=== PATIENT | female | born 1965 | race Caucasian/White ===

== ENCOUNTER 2023-04-16 19:05 | Emergency (ER) | payer BC, SELFPAY ==
[2023-04-16 19:09] VITALS: BP 148/87; PULSE 90; RESP 18; TEMP 36.6; O2SAT 98; BMI 20.8
--- NOTE | 2023-04-16 19:27 | ED_ITS ---
HPI - General Adult General Time Seen by Provider: 19:27 Date Seen: 04/16/23 Chief complaint: Abdominal Pain Stated complaint: L side pain, previous hematoma Time Seen by Provider: 04/16/23 19:17 Source: patient Mode of arrival: ambulatory Limitations: no limitations History of Present Illness HPI narrative: Patient is a 57-year-old female without her to the medical problems presenting to emergency department for concern for hematoma to left side of abdomen. She states will 3 weeks ago she had liposuction performed. She then developed a hematoma in the area on the left lateral aspect of her abdomen and had the hematoma drained this past Tuesday and then again on . She thinks they got about 150 mL all total. She then notes above the hematoma there is a new dense aspect that was painful to palpation that she did not notice before. She states she is unsure if it was there previously or not because of how large hematoma was. She states they did not get all the hematoma of the head. She states she has been otherwise feeling well. Has been taking Vicodin as directed. As be eating without issue. Denies nausea, vomiting, abdominal pain, headache, vision changes, weakness, numbness, diarrhea, constipation, chest pain, shortness of breath Related Data Home Medications Medication Instructions Recorded Confirmed levothyroxine 100 mcg capsule 100 mcg PO DAILY 04/16/23 04/16/23 Allergies Allergy/AdvReac Type Severity Reaction Status Date / Time methocarbamol [From Robaxin] Allergy Verified 04/17/23 05:11 neproxin Allergy Intermediate Uncoded 04/17/23 05:11 Review of Systems Status of ROS: Reports: 10 or more systems reviewed and unremarkable except as noted in History and below [facility] Social History Smoking Status: Never smoker Do you use any of these nicotine containing products: None Second hand tobacco smoke exposure: No How often do you have a drink containing alcohol: 2-4 times a month AUDIT-C Alcohol total score: 2 Non-prescribed substance use: denies use Exam Narrative: Exam Narrative: Const: Well-nourished, Well-developed, in no distress Eyes: PERRL, no conjunctival injection, and symmetrical lids ENMT: Atraumatic external nose and ears. Moist mucous membranes. Neck: Symmetric, trachea midline, No thyromegaly. CVS: RRR, No murmurs or gallops. Peripheral pulses 2+ and equal in all extremities RESP: Unlabored respiratory effort. Clear to auscultation bilaterally. GI: Mild tenderness in the left lateral aspect of the lower abdomen and is a firm nodule. Nondistended, No rebound or guarding. MSK:Extremities w/o deformity, Normal Active ROM Skin: Warm, Dry. Mild bruising noted to the left lower aspect below the previously stated nodule Neuro: Normal Muscle tone, No focal neurological deficits. Psych: Awake, Alert, & Oriented x3. Appropriate mood and affect. Const: Vital Signs, click to edit/add: Vital Signs - 24 hr 04/16/23 19:09 04/16/23 21:14 Temperature 98 F Pulse Rate [Pulse Oximeter] 90 70 Respiratory Rate 18 18 Blood Pressure [Le ft Upper Arm] 148/87 H 126/76 Pulse Oximetry 98 99 Oxygen Delivery Me thod Room Air Room Air Course Vital Signs Vital signs: Initial Vital Signs Temperature 98 F 04/16/23 19:09 Temperature Source Temporal Artery Scan 04/16/23 19:09 Pulse Rate 90 04/16/23 19:09 Respiratory Rate 18 04/16/23 19:09 Blood Pressure 148/87 H 04/16/23 19:09 Blood Pressure Mean 107 H 04/16/23 19:09 Blood Pressure Position Sitting 04/16/23 19:09 Pulse Oximetry 98 04/16/23 19:09 Oxygen Delivery Method Room Air 04/16/23 19:09 Vital Signs Temperature 98 F 04/16/23 19:09 Pulse Rate 90 04/16/23 19:09 Respiratory Rate 18 04/16/23 19:09 Blood Pressure 148/87 H 04/16/23 19:09 Pulse Oximetry 98 04/16/23 19:09 Oxygen Delivery Method Room Air 04/16/23 19:09 Temperature 98 F 04/16/23 19:09 Pulse Rate 70 04/16/23 21:14 Respiratory Rate 18 04/16/23 21:14 Blood Pressure 126/76 04/16/23 21:14 Pulse Oximetry 99 04/16/23 21:14 Oxygen Delivery Method Room Air 04/16/23 21:14 Medical Decision Making MDM Narrative Medical decision making narrative: Patient is a 57-year-old female presented emergency department for left lateral abdominal pain. She has recently had liposuction and had a hematoma in the area. She has had it drained twice within the past week. She noticed a new nodule above the hematoma today. She is unsure if it has been there before. CBC, BMP, CT scan with IV contrast was ordered to better evaluate this area. CBC shows no concerning abnormalities. Hemoglobin appears to be at her baseline. BMP was within normal limits. CT scan shows the previously known hematoma no other concerning abnormalities. She otherwise is doing well at this time is safe for discharge. She is agreeable to this plan. Lab Data Labs: Lab Results 04/16/23 Range/Units 19:35 WBC 6.20 (4.50-11.00) K/uL RBC 2.99 L (4.00-5.20) m/uL Hgb 9.4 L (12.0-16.0) gm/dL Hct 29.2 L (33.0-51.0) % MCV 98 (80-100) fL MCH 31 (26-34) pg MCHC 32 (32-36) gm/dL RDW Coeff of Young 12.8 (11.5-15.5) % Plt Count 417 (140-440) K/uL Neut % (Auto) 66.9 (42.0-72.0) % Lymph % (Auto) 23.9 (20-44) % [place] % (Auto) 5.5 (0.0-11.0) % Eos % (Auto) 2.7 (0.0-7.0) % Baso % (Auto) 0.8 (0.0-3.0) % Neut # (Auto) 4.15 (1.7-7.0) K/uL Lymph # (Auto) 1.48 (0.90-2.90) K/uL [place] # (Auto) 0.30 (0.00-0.90) K/UL Eos # (Auto) 0.17 (0.00-0.50) K/uL Baso # (Auto) 0.05 (0.00-0.30) K/uL Abs Immat Gran (auto) 0.01 (0.00-0.30) K/uL Imm/Tot Granulo (auto) 0.2 % Sodium 140 (135-149) mmol/L Potassium 3.8 (3.6-5.1) mmol/L Chloride 105 (96-114) mmol/L Carbon Dioxide 27 (20-32) mmol/L BUN 17 (7-30) mg/dL Creatinine 0.8 (0.5-1.5) mg/dL Estimated Creat Clear 70.28 Estimated GFR 86 ml/min Glucose 92 (60-115) mg/dL Calcium 8.5 (8.4-10.6) mg/dL Total Bilirubin 0.5 (0.1-1.5) mg/dL AST 26 (12-35) U/L ALT 17 (4-35) U/L Alkaline Phosphatase 57 (40-150) U/L Total Protein 7.3 (6.0-8.3) g/dL Albumin 4.2 (3.3-5.0) g/dL Imaging Data CT scan - abdomen: Radiologist's impression: INDICATION: Concern for left-sided hematoma TECHNIQUE: CT abdomen and pelvis acquired with 62 mL Isovue 370 IV contrast. COMPARISON: None FINDINGS: Lower chest: Incompletely visualized bilateral breast implants, otherwise, unremarkable. Liver: Mild steatosis suggested, otherwise unremarkable. Spleen: Unremarkable. Pancreas: Unremarkable. Gallbladder and bile ducts: Unremarkable. Kidneys: Unremarkable. Adrenal glands: Unremarkable. GI tract: Mild increased amount of stool in colon, otherwise, unremarkable. Appendix is not seen. Vascular structures: Negative. No sign of aneurysm. Lymph nodes: Unremarkable. Miscellaneous: Oval-shaped fluid collection anterior lateral left lower abdominal wall is 6.4 cm craniocaudad 6.2 cm AP and 1.3 cm transverse, consistent with hematoma. No free air or significant free fluid. Pelvic Organs: Apparently, status post hysterectomy. There is a left adnexal cyst present, about 3.5 cm largest dimension. Bones: No acute fracture/bony lesion. Specifically no evidence of fracture at the left iliac crest. IMPRESSION: 1. Focal fluid collection anterior lateral left anterior abdominal wall consistent with hematoma, 6.4 x 6.2 x 1.3 cm. 2. Additional postoperative and nonemergent findings, as above. Please note that all CT scans at this facility use dose modulation, iterative reconstruction, and/or weight-based dosing when appropriate to reduce radiation dose to as low as reasonably achievable. Dictated by Adrian Berrios MD @ 04/16/2023 9:36:28 PM Discharge Plan Discharge Clinical Impression: Hematoma of abdominal wall Qualifiers: Encounter type: initial encounter Qualified Code(s): S30.1XXA - Contusion of abdominal wall, initial encounter Patient Disposition: Home, Self-Care Condition: Stable Instructions: Contusion in Adults (ED) Additional Instructions: Follow-up with primary care provider. Return for new worsening symptoms. Prescriptions: No Action levothyroxine 100 mcg capsule 100 mcg PO DAILY Follow Up/Referrals: Ji Osuna MD [Primary Care Provider] - Stand Alone Forms: [employer] Info Instructions
[2023-04-16 19:46] LABS: Basophils Absolute Auto 0.05 K/uL (0.00-0.30); Basophils Percent Auto 0.8 % (0.0-3.0); Eosinophils Absolute Auto 0.17 K/uL (0.00-0.50); Eosinophils Percent Auto 2.7 % (0.0-7.0); Hematocrit 29.2 % (33.0-51.0); Hemoglobin* 9.4 gm/dL (12.0-16.0); Immature Granulocytes Abs Auto 0.01 K/uL (0.00-0.30); Immature Granulocytes Pct Auto 0.2 %; Lymphocytes Absolute Auto 1.48 K/uL (0.90-2.90); Lymphocytes Percent Auto 23.9 % (20-44); Mean Corpuscular HGB Conc 32 gm/dL (32-36); Mean Corpuscular Hemoglobin 31 pg (26-34); Mean Corpuscular Volume 98 fL (80-100); Monocytes Percent Auto 5.5 % (0.0-11.0); Neutrophils Absolute Auto 4.15 K/uL (1.7-7.0); Neutrophils Percent Auto 66.9 % (42.0-72.0); Platelet Count* 417 K/uL (140-440); RDW Coefficient of Variation % 12.8 % (11.5-15.5); Red Blood Count 2.99 m/uL (4.00-5.20)
[2023-04-16 19:48] LABS: Slide Review Reflex No
[2023-04-16 19:58] LABS: Albumin* 4.2 g/dL (3.3-5.0)
[2023-04-16 19:59] LABS: Chloride* 105 mmol/L (96-114); Potassium* 3.8 mmol/L (3.6-5.1); Sodium* 140 mmol/L (135-149)
[2023-04-16 20:01] LABS: Aspartate Amino Transferase* 26 U/L (12-35); Bilirubin Total* 0.5 mg/dL (0.1-1.5); Carbon Dioxide* 27 mmol/L (20-32); Creatinine* 0.8 mg/dL (0.5-1.5); Est. Creatinine Clearance* 70.28; Estimated Glomerular Filt Rate 86 ml/min; Total Protein* 7.3 g/dL (6.0-8.3)
[2023-04-16 20:02] LABS: Alanine Aminotransferase* 17 U/L (4-35); Alkaline Phosphatase* 57 U/L (40-150); Blood Urea Nitrogen* 17 mg/dL (7-30); Calcium* 8.5 mg/dL (8.4-10.6); Glucose* 92 mg/dL (60-115)
[2023-04-16 21:14] VITALS: BP 126/76; PULSE 70; RESP 18; O2SAT 99
== END 2023-04-16 21:53 | disposition home or self-care (01) ==
PROVIDERS: Emergency Provider Student in an Organized Health Care Education/Training Program; PCP Surgery
DX: S30.1XXA Contusion of abdominal wall, initial encounter (principal); T81.9XXA Unspecified complication of procedure, initial encounter
CPT/HCPCS: 36415; 74177; 80053; 85025; 99283; 99284; 99285; Q9967

== ENCOUNTER 2023-09-19 12:20 | Emergency (ER) | payer BC, SELFPAY ==
[2023-09-19 12:39] VITALS: BP 120/78; PULSE 80; RESP 16; TEMP 36.8; O2SAT 99; BMI 20.5
--- NOTE | 2023-09-19 13:41 | PC.NURSE ---
Pt states she works out every day, yesterday during planks she developed pain/pressure across entire chest, states she could barely talk or make it to phone to call daughter. Feels as though she was going to pass out. Pressure did improve with time and rest, was able to sleep last night. Today pressure across chest increasing and more so with exertion. History of mitral valve prolapse, recent divorce but states stress level is lessened now. Two weeks ago started on Crestor.
--- NOTE | 2023-09-19 13:50 | ED.CHESTPAIN ---
HPI - Chest Pain General Chief Complaint: Chest Pain Stated Complaint: Ref by PCP-chest tightness, shortness of breath Time Seen by Provider: 09/19/23 13:27 History of Present Illness HPI narrative: This 58-year-old female comes in reporting some chest tightness or heaviness that occurred yesterday when exercising. She normally exercises daily and does not have any symptoms except that she does report a history of mitral valve prolapse and feels like she can feel the symptoms when this is occurring. In some ways the symptoms yesterday were similar but she became very lightheaded and almost had loss of consciousness at the event yesterday. She states that it took about 5 minutes to recover from this and since then has felt a chest tightness which she says is not really a pain. She did ambulate some stairs and felt that she had worsening symptoms. She did not have any nausea, vomiting, shortness of breath, or diaphoresis. She does not have any cardiac risk factors except for positive family history. Her father had bypass surgery at age 46. He was a smoker. Related Data Home Medications Medication Instructions Recorded Confirmed levothyroxine 100 mcg capsule 100 mcg PO DAILY 04/16/23 09/19/23 rosuvastatin 20 mg tablet (Crestor) 20 mg PO DAILY 09/19/23 09/19/23 Allergies Allergy/AdvReac Type Severity Reaction Status Date / Time methocarbamol [From Robaxin] Allergy Verified 04/17/23 05:11 neproxin Allergy Intermediate Uncoded 04/17/23 05:11 Review of Systems Status of ROS Reports: 10 or more systems reviewed and unremarkable except as noted in History and below Narrative Constitutional: No fevers, no weight gain or loss. Eyes: No discharge. No vision changes. HENT: No congestion, no sore throat, no ear pain. Cardiovascular: Occasional palpitations. She reports a history of mitral valve prolapse. Respiratory: No shortness of breath, no wheezes, no cough. Gastrointestinal: No abdominal pain, no vomiting, no diarrhea. Genitourinary: No dysuria, no hematuria. Musculoskeletal: Normal range of motion. Skin: No rashes, no pruritis. Neurological: No dizziness, weakness, sensory change, speech change. Endo/Heme/Allergies: No bruising or bleeding. No polydipsia. Pysch: no suicidality, no anxiety, no insomnia. All other systems reviewed and are negative. PFSH PFSH Social History Smoking Status: Never smoker Do you use any of these nicotine containing products: None Second hand tobacco smoke exposure: No How often do you have a drink containing alcohol: 2-4 times a month AUDIT-C Alcohol total score: 2 Non-prescribed substance use: denies use service: No Exam Narrative Exam Narrative: Constitutional: Well-developed, well-nourished, no acute distress. HEENT: Normocephalic, atraumatic. Neck: Normal range of motion. Nontender. Supple. Heart: Regular. No murmurs. Normal rate. Intact distal pulses. Lungs: Clear to auscultation. No chest discomfort. No wheezes, rhonchi, or rales. Abdomen: Normal bowel sounds. Nontender. No rebound tenderness. Genitalia: Deferred. Back: No midline tenderness. Normal range of motion. Extremities: Normal range of motion. No injury. Skin: Intact. No rash. Warm. No erythema or pallor. Neurologic: No altered sensation. No weakness. Alert and oriented. Psychiatric: No suicidality. No anxiety or depression. No insomnia. Nursing notes and vitals signs are reviewed. Const Vital Signs, click to edit/add: Vital Signs - 24 hr 09/19/23 12:39 Temperature 98.2 F Pulse Rate [Right Pulse Oximeter] 80 Respiratory Rate 16 Blood Pressure [Right Upper Arm] 120/78 Pulse Oximetry 99 Oxygen Delivery Method Room Air Course Vital Signs Vital signs: Initial Vital Signs Temperature 98.2 F 09/19/23 12:39 Temperature Source Temporal Artery Scan 09/19/23 12:39 Pulse Rate 80 09/19/23 12:39 Pulse Rhythm Regular 09/19/23 12:39 Respiratory Rate 16 09/19/23 12:39 Blood Pressure 120/78 09/19/23 12:39 Blood Pressure Mean 92 09/19/23 12:39 Blood Pressure Position Sitting 09/19/23 12:39 Pulse Oximetry 99 09/19/23 12:39 Oxygen Delivery Method Room Air 09/19/23 12:39 Vital Signs Temperature 98.2 F 09/19/23 12:39 Pulse Rate 80 09/19/23 12:39 Respiratory Rate 16 09/19/23 12:39 Blood Pressure 120/78 09/19/23 12:39 Pulse Oximetry 99 09/19/23 12:39 Oxygen Delivery Method Room Air 09/19/23 12:39 Temperature 98.2 F 09/19/23 12:39 Pulse Rate 80 09/19/23 12:39 Respiratory Rate 16 09/19/23 12:39 Blood Pressure 120/78 09/19/23 12:39 Pulse Oximetry 99 09/19/23 12:39 Oxygen Delivery Method Room Air 09/19/23 12:39 MDM - Chest Pain MDM Narrative Medical decision making narrative: This patient comes in reporting an episode that occurred yesterday when exercising. She normally exercises vigorously and tolerates this without any difficulty. She does not have any cardiac risk factors except for her father having a bypass surgery at age 46. He was a smoker. Her EKG today shows normal sinus rhythm. Lab results also returned with reassuring findings. Her troponin returns at 0. I did use bedside ultrasound unofficially to do a quick look at her heart and saw normal valvular function and no wall motion abnormality. This was reassuring to the patient. I did not capture any images to the record. She is okay to be discharged home and encouraged to increase activity as tolerated. I suggested that she could follow-up with echocardiogram or stress testing Or heart monitoringif needed. Lab Data Labs: Lab Results 09/19/23 09/19/23 Range/Units 13:50 14:10 WBC 6.06 (4.50-11.00) K/uL RBC 3.76 L (4.00-5.20) m/uL Hgb 12.0 (12.0-16.0) gm/dL Hct 37.0 (33.0-51.0) % MCV 98 (80-100) fL MCH 32 (26-34) pg MCHC 32 (32-36) gm/dL RDW Coeff of [place] 11.8 (11.5-15.5) % Plt Count 276 (140-440) K/uL Neut % (Auto) 64.1 (42.0-72.0) % Lymph % (Auto) 27.2 (20-44) % [place] % (Auto) 6.9 (0.0-11.0) % Eos % (Auto) 0.8 (0.0-7.0) % Baso % (Auto) 0.5 (0.0-3.0) % Neut # (Auto) 3.88 (1.7-7.0) K/uL Lymph # (Auto) 1.65 (0.90-2.90) K/uL [place] # (Auto) 0.40 (0.00-0.90) K/UL Eos # (Auto) 0.05 (0.00-0.50) K/uL Baso # (Auto) 0.03 (0.00-0.30) K/uL Abs Immat Gran (auto) 0.03 (0.00-0.30) K/uL Imm/Tot Granulo (auto) 0.5 % Sodium 141 (135-149) mmol/L Potassium 4.2 (3.6-5.1) mmol/L Chloride 105 (96-114) mmol/L Carbon Dioxide 27 (20-32) mmol/L Anion Gap 9 (7-15) mEq/L BUN 19 (7-30) mg/dL Creatinine 0.7 (0.5-1.5) mg/dL Estimated Creat Clear 78.10 Estimated GFR 101 ml/min Glucose 88 (60-115) mg/dL Calcium 9.1 (8.4-10.6) mg/dL POC Troponin I 0.00 L (0.01-0.04) ng/ml ECG Data Attestation: I personally reviewed and interpreted this ECG as follows: Interpretation: Normal sinus rhythm. Rate is 86 beats per minute. There are no ST or T-wave abnormalities. Discharge Plan Discharge Clinical Impression: Episodic lightheadedness Patient Disposition: Home, Self-Care Condition: Stable Additional Instructions: continue current plans. Increase activity as tolerated. Follow up with MD or return if symptoms are recurrent or worsening. Prescriptions: No Action rosuvastatin [Crestor] 20 mg tablet 20 mg PO DAILY levothyroxine 100 mcg capsule 100 mcg PO DAILY Follow Up/Referrals: Ji Osuna MD [Primary Care Provider] - Stand Alone Forms: [employer] Info Instructions
[2023-09-19 14:24] LABS: Basophils Absolute Auto 0.03 K/uL (0.00-0.30); Basophils Percent Auto 0.5 % (0.0-3.0); Eosinophils Absolute Auto 0.05 K/uL (0.00-0.50); Eosinophils Percent Auto 0.8 % (0.0-7.0); Immature Granulocytes Abs Auto 0.03 K/uL (0.00-0.30); Immature Granulocytes Pct Auto 0.5 %; Lymphocytes Absolute Auto 1.65 K/uL (0.90-2.90); Lymphocytes Percent Auto 27.2 % (20-44); Mean Corpuscular HGB Conc 32 gm/dL (32-36); Mean Corpuscular Hemoglobin 32 pg (26-34); Mean Corpuscular Volume 98 fL (80-100); Monocytes Percent Auto 6.9 % (0.0-11.0); Neutrophils Absolute Auto 3.88 K/uL (1.7-7.0); Neutrophils Percent Auto 64.1 % (42.0-72.0); Platelet Count* 276 K/uL (140-440); RDW Coefficient of Variation % 11.8 % (11.5-15.5); Red Blood Count 3.76 m/uL (4.00-5.20); White Blood Count* 6.06 K/uL (4.50-11.00)
[2023-09-19 14:32] LABS: Slide Review Reflex No
[2023-09-19 14:39] LABS: Chloride* 105 mmol/L (96-114); Potassium* 4.2 mmol/L (3.6-5.1); Sodium* 141 mmol/L (135-149)
[2023-09-19 14:41] LABS: Creatinine* 0.7 mg/dL (0.5-1.5); Estimated Glomerular Filt Rate 101 ml/min
[2023-09-19 14:42] LABS: Anion Gap 9 mEq/L (7-15); Blood Urea Nitrogen* 19 mg/dL (7-30); Calcium* 9.1 mg/dL (8.4-10.6); Carbon Dioxide* 27 mmol/L (20-32); Glucose* 88 mg/dL (60-115)
--- OUTSIDE RECORDS SUMMARY | 2023-09-19 15:35 | XMS_ITS | Clinical Summary ---
Author Name Unknown Organization [employer] [facility] [employer] Address [place], [place] [address] Care Team Providers Care Fur Matcher Name Role Phone Alberta Reyes MD Unavailable + Ji Osuna MD Primary Care Provider [phone] Allergies Active Allergy Reactions Criticality Noted Date Comments Methocarbamol Itching 06/16/2020 Niacin Rash,Flushing Norgestimate-Ethinyl Estradiol Other - Describe In Comment Field 04/03/2008 Bleeding every day Medications Medication Sig Dispensed Refills Start Date End Date Status levothyroxine (Synthroid) 100 mcg tabletIndications:Hy pothyroidism, unspecified type,Well adult exam TAKE 1 TABLET BEFORE BREAKFAST. BEST IF TAKEN OBIE EMPTY STOMACH. 90 Tablet 0 08/15/2023 Active LORazepam (ATIVAN) 0.5 mg tabIndications:Insom grayson, idiopathic Take 1 Tablet (0.5 mg) by mouth at bedtime if needed for Anxiety or Sleep. 30 Tablet 0 09/12/2023 Active rosuvastatin (CRESTOR) 20 mg tabletIndications:Hy perlipidemia, unspecified hyperlipidemia type Take 1 Tablet (20 mg) by mouth at bedtime. 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 1 Tube 2 04/15/2021 09/12/2023 Discontinue d(*Patient states no longer taking) rosuvastatin (CRESTOR) 20 mg tabletIndications:Hy perlipidemia, unspecified hyperlipidemia type Take 1 Tablet (20 mg) by mouth at bedtime. 90 Tablet 3 10/15/2022 09/14/2023 Discontinue d(Reorder (E-cancel not sent)) traZODone (DESYREL) 50 mg tabletIndications:In somnia, idiopathic Take 1 Tablet (50 mg) by mouth at bedtime if needed for Sleep. 31 Tablet 0 09/12/2023 09/12/2023 Discontinue d(*Allergic /Adverse Rxn/Side Effects) Active Problems Problem Noted Date Diagnosed Date Right axis deviation 03/11/2023 Pain of left clavicle 01/03/2019 Arthritis of left sternoclavicular joint 019 Ganglion cyst 01/03/2019 Displacement of cervical int ervertebral disc without myelopathy 03/06/2009 Iron deficiency anemia secondary to blood loss ( chronic) 11/21/2008 Unspecified hypothyroidism Overview: 2007-decreasing thyroid requirement with positive TSI [ 12/11] Migraine, unspecified, witho ut mention of intractable migraine without mention of status migrainosus Anxiety state, unspecified Mitral valve disorders Alopecia areata Encounters Date Type Department Care Team Description 09/19/2023 Nurse Triage [facility] [address] [place] [address] Ji Osuna MD Chest Pain/problem 09/14/2023 Telephone [facility] [address] [place] [address] Ji Osuna MD 09/12/2023 10:20 AM JEWELRY REPAIRER Office Visit [facility] [address] [place] [address] Ji Osuna MD Physical (58 yr old female) 09/12/2023 Travel 08/14/2023 Refill [facility] [address] [place] [id number] Ji Osuna MD Refill Request (Synthroid) from Last 3 Months Immunizations Name Administration Dates Next Due COVID-19 vaccine ([employer]) STEVAN MONTIEL 1 COVID-19 vaccine ([employer] NTech 30mcg/0.3mL) PF, MDV 10/23/2021 DT (Age < 7 years) 09/21/2002 Influenza, IIV4 09/12/2023,05/13/2020,08/26/2016 Td (Age >=7 Years) 10/10/2006 Tdap 08/26/2016 Zoster (Shingrix-RZV, recombinant) 04/02/2019, Family History Medical History Relation Name Comments Heart Disease Father Hypertension Father Cancer-breast Maternal Aunt 1 2 Aunts on Mothers side Cancer-breast Maternal Aunt 2 Cancer-breast Maternal Aunt 3 Cancer-breast Maternal Aunt 4 Alcohol/Drug Maternal Grandfather Alcohol/Drug Maternal Grandmother Heart Disease Maternal Grandmother Osteoporosis Maternal Grandmother Other Maternal Grandmother depress ion/parkinsons Unknown Maternal Grandmother diana on Alcohol/Drug Mother Other Mother copd Cancer-breast Paternal Grandmother Hypertension Paternal Grandmother Stroke Paternal Grandmother Cancer-breast Sister 2 times Relation Name Status Comments Father Maternal Aunt 1 Maternal Aunt 2 Maternal Aunt 3 Maternal Aunt 4 Maternal Grandfather Maternal Grandmother Mother Alive Paternal Grandmother Sister Social History Tobacco Use Types Packs/Day Years Used Date Smoking Tobacco: Former Cigarettes Q uit: 09/05/1990 Passive Smoke Exposure: Never Smokeless Tobacco: Never Tobacco Cessation:Counseling Given: Not Answered Comments:quit in her 20's Alcohol Use Standard Drinks/Week Comments Yes 3.3 (1 standard drink = 0.6 oz p ure alcohol) 4 drinks/week PHQ-2 Answer Date Recorded PHQ-2 TOTAL SCORE 0 04/15/2021 Social Connections Answer Date Recorded Frequency of Communication with Friends and Fami ly 0 09/12/2023 Financial Resource Strain Answer Date R ecorded Difficulty of Paying Living Expenses 3 09/12/2023 Difficulty of Paying Living Expenses Not on file 09/12/2023 Food Insecurity Answer Date Recorded Worried About Running Out of Food in the Last Ye ar 1 09/12/2023 Transportation Needs Answer Date Record ed Lack of Transportation (Medical) 1 09/12/2023 Housing Stability Answer Date Recorded Unable to Pay for Housing in the Last Year 1 09/12/2023 Sex and Gender Information Value Date Recorded Sex Assigned at Not on file Gender Identity Not on file Sexual Orientation Not on file Obstetrics History Para Term AB IAB SAB Ectopic Multiple Livin g Live Births 4 4 4 0 0 0 0 0 0 4 Date Outcome GA Total Labor Labor/2nd/3rd Weight Sex Delivery Anes PTL Xena A1 A5 Name Cl in Term Term Term Term Last Filed Vital Signs Vital Sign Reading Time Taken Comments Blood Pressure 125/82 09/12/2023 10:30 AM JEWELRY REPAIRER Pulse 71 09/12/2023 10:30 AM JEWELRY REPAIRER Temperature 36.7 ??C (98 ??F) 03/11/2023 8:44 AM CDT Respiratory Rate 16 03/11/2023 8:44 AM CDT Oxygen Saturation 100% 09/12/2023 10:30 AM JEWELRY REPAIRER Inhaled Oxygen Concentration - - Weight 56.5 kg (124 lb 8 oz) 09/12/2023 10:30 AM JEWELRY REPAIRER Height 165 cm (5' 4.96) 09/12/2023 10:30 AM JEWELRY REPAIRER Body Mass Index 20.74 09/12/2023 10:30 AM JEWELRY REPAIRER Plan of Treatment Upcoming Encounters Date Type Department Care Team (Late st Contact Info) Description 09/21/2023 4:00 PM JEWELRY REPAIRER Ancillary Procedure [facility] [address] [place] [address] 09/23/2023 4:00 PM JEWELRY REPAIRER Appointment [facility] [address] [place] [address] 10/24/2023 1:50 PM JEWELRY REPAIRER Office Visit [facility] [address] [place] [address] Ji Osuna MD [address] [place] [address] Health Maintenance Due Date Last Done Comments Depression screening for age 12+ 04/16/2022 04/16/2021, 04/15/2021, 04/29/2020, Additional history exists COVID-19 vaccine series ( season) 2023 10/23/2021, 12/03/2020 Mammogram for age 45-75 12/22/2023 12/22/19 23, 04/28/2020, 09/11/2018, Additional history exists BMI (ht and wt on same day) for age 18+ 09/12/2024 09/12/2023, 03/11/2023, 08/17/2021, Additional history exists Tetanus booster 08/26/2026 08/26/2016, 10/10/2006 Lipids for age 45-75 09/12/2028 09/12/2023, 10/12/2022, 04/28/2020, Additional history exists Colonoscopy through age 75 01/18/203301/18, 01/18/2023, 01/18/2023, Additional history exists Tdap Completed 08/26/2016 Zoster (shingles) series for age 50+ Completed 04/02/2019, 12/08/2018 HIV for age 15-65 Completed 10/12/2022 Hepatitis C screening for age 18-79 Completed 10/12/2022 Influenza for age 50-64 Completed 09/12/19 24, 05/13/2020, 08/26/2016 Pneumococcal series for age 6-64 Aged Out No longer eligible based on patient's age to complete this topic Medical Devices Implanted Type Area Dining Service Supervisor Device Identifier Shelf Expiration Date Model / Serial / Lot [id number] Spinal Graft Block Nick Implanted:Qty: 1 on 05/02/2020 by Wilfredo Marin MD at [facility] Explanted:at [facility] (Quantity not on file) N/A: Spine Medtronic Spine/Ortho 07/18/[id number] / [id number] / [id number] one Matrix 0.5cc Progenix Putty Dbm Implanted:Qty: 1 on 05/02/2020 by Wilfredo Marin MD at [facility] Explanted:at [facility] (Quantity not on file) N/A: Spine [employer]tronic Spine/Ortho 10/03/2021 [id number] / [id number] / Screw Cerv Ant 3.5x13mm Zevo Variable Slf Drilling - [id number] Implanted:Qty: 4 on 05/02/2020 by Wilfredo Marin MD at [facility] N/A: Spine [employer]tr[employer] Spine/Ortho [id number] / / Plate Zevo 21mm 1 Lvl Implanted:Qty: 1 on 05/02/2020 by Wilfredo Marin MD at [facility] N/A: Spine [id number] / / Description:PLATE ZEVO 21MM 1 LVL Procedures Procedure Name Priority Date/Time Associated Diagnosis Comments TSH Routine 09/12/2023 11:36 AM JEWELRY REPAIRER Acquired hypothyroidism CA 125 Routine 09/12/2023 11:36 AM JEWELRY REPAIRER Adnexal mass BASIC METABOLIC PANEL Routine 09/12/2023 11:36 AM JEWELRY REPAIRER Adnexal mass LIPID PANEL Routine 09/12/2023 11:36 AM JEWELRY REPAIRER Hyperlipidemia, unspecified hyperlipidemia type from Last 3 Months Results * TSH (09/12/2023 11:36 AM JEWELRY REPAIRER) TSH 4.19 0.27 - 4.20 uIU/mL 09/12/2023 10:10 PM JEWELRY REPAIRER [facility] Blood BLOOD SPECIMEN / Unknown Venipuncture / Unknown 09/12/2023 11:36 AM JEWELRY REPAIRER 09/12/2023 11:36 AM JEWELRY REPAIRER Narrative [facility] - 09/12/2023 10:10 PM JEWELRY REPAIRER In Adults, TSH values between 5.00 and 10.00 uIU/ml do not necessarily indicate the presence of Hypothyroidism. Correlation with clinical findings such as presence of goiter and/or Thyroperoxidase (TPO) Antibody may be helpful. For more information please refer to CLAY 2004; 291: 228-238. Ji Osuna MD CHEMISTR[facility] [address] [place] [address], * CA 125 (09/12/2023 11:36 AM JEWELRY REPAIRER) CA 125 17.9 <38.1 U/mL 09/12/2023 10:10 PM JEWELRY REPAIRER [facility] Blood BLOOD SPECIMEN / Unknown Venipuncture / Unknown 09/12/2023 11:36 AM JEWELRY REPAIRER 09/12/2023 11:36 AM JEWELRY REPAIRER Narrative [facility] - 09/12/2023 10:10 PM JEWELRY REPAIRER The test method changed on 09/07/2022. If this test has been used for serial monitoring, rebaselining is recommended. Rebaselining consists of 2 measurements, collected 3-6 weeks apart. The Loretta Elecsys CA 125 assay is an electrochemiluminescence immunoassay ECLIA performed on the Loretta Yg e immunoassy analyzers. ?? Values obtained with different assay methods may be different and cannot be used interchangeably. ? Biotin supplements may cause clinically significant interference for this test assay. If interference is suspected, it is strongly recomended that biotin is discontinued for at least one week prior to retesting. Ji Osuna MD CHEMISTRY [facility] [address] [place] [address], * (ABNORMAL) LIPID PANEL (09/12/2023 11:36 AM JEWELRY REPAIRER) CHOLESTEROL,TOTAL 334(H) 100 - 199 mg/dL 09/12/2023 10:10 PM [facility] Comment: Cholesterol, Total Reference Ranges Desirable <200 mg/dL Borderline 200-239 mg/dL High >=240 mg/dL TRIGLYCERIDES 138 <150 mg/dL 09/12/2023 10:10 PM [facility] HDL CHOLESTEROL 81 >40 mg/dL 10:10 PM [facility] NON-HDL CHOLESTEROL 253(H) <145 mg/dl 09/12/2023 10:10 PM [facility] CHOL/HDL RATIO 4.12 <4.50 09/12/2023 10:10 PM [facility] LDL CHOLESTEROL 225(H) <=130 mg/dL 09/12/2023 10:10 PM [facility] VLDL CHOLESTEROL 28 <=30 mg/dL 09/12/2023 10:10 PM [facility] PROVIDER ORDERED STATUS RANDOM 09/12/2023 10:10 PM [facility] Blood BLOOD SPECIMEN / Unknown Venipuncture / Unknown 09/12/2023 11:36 AM JEWELRY REPAIRER 09/12/2023 11:36 AM [facility] Ji Osuna MD CHEMISTRY [facility] [address] [place] [address], * (ABNORMAL) BASIC METABOLIC PANEL (09/12/2023 11:36 AM JEWELRY REPAIRER) SODIUM 139 136 - 145 mmol/L 09/12/2023 10:10 PM [facility] POTASSIUM 4.7 3.5 - 5.1 mmol/L 09/12/2023 10:10 PM [facility] CHLORIDE 100 98 - 107 mmol/L 09/12/2023 10:10 PM [facility] CO2,TOTAL 26 22 - 29 mmol/L 09/12/2023 10:10 PM [facility] ANION GAP 13 5 - 18 09/12/2023 10:10 PM [facility] GLUCOSE 97 70 - 99 mg/dL 09/12/2023 10:10 PM [facility] CALCIUM 9.8 8.6 - 10.0 mg/dL 09/12/2023 10:10 PM [facility] BUN 17 6 - 20 mg/dL 09/12/2023 10:10 PM [facility] CREATININE 0.86 0.50 - 0.90 mg/dL 09/12/2023 10:10 PM [facility] BUN/CREAT RATIO 20 10 - 20 10:10 PM [facility] eGFR 79(L) >90 mL/min/1.7 3m2 09/12/2023 10:10 PM JEWELRY REPAIRER [facility] Comment:As of 2021, eG FR is calculated by the CKD-EPI creatinine equation without race adjustment. ??eGFR can be influenced by muscle mass, exercise, and diet. ??The reported eGFR is an estimation only and is only applicable if the renal function is stable. Blood BLOOD SPECIMEN / Unknown Venipuncture / Unknown 09/12/2023 11:36 AM JEWELRY REPAIRER 09/12/2023 11:36 AM JEWELRY REPAIRER Ji Osuna MD CHEMISTRY [facility] [address] [place] [address], [place] from Last 3 Months Advance Directives Documents on File Type Date Recorded Patient Equipment Maint Tech Expl anation Healthcare Directive 08/31/2017 8:24 AM H EALTHCARE DIRECTIVE, 08/24/2017 Latest Code Status on File Code Status Date Activated Date Inactivated Comments Full Code 05/02/2020 5:58 AM 05/03/2020 1:50 PM Question Answer Comments Code Status Discussion: Discussed Code Status History Code Status Date Activated Date Inactivated Comments Full Code 08/13/2014 5:55 PM 08/13/2014 10:02 PM Full Code 08/12/2014 11:33 AM 08/13/2014 5:55 PM Care Teams Fur Matcher Relationship Specialty Start Date End Date Ji Osuna MD [address] [place] [address] PCP - General Family Practice 10/12/22 Alberta Reyes MD [address] [place] [id number] Dermatology 12/15/11
== END 2023-09-19 15:17 | disposition home or self-care (01) ==
LOC: ED 15:13
PROVIDERS: Emergency Provider Emergency Medicine Emergency Medical Services; PCP Surgery
DX: R42 Dizziness and giddiness (principal)
CPT/HCPCS: 36415; 80048; 84484; 85025; 99284